=== PATIENT | female | born 1975 | race Caucasian/White ===

== ENCOUNTER 2018-12-21 13:36 | Emergency (ER) | payer OTHER ==
[2018-12-21] MEDS: IBUPROFEN 200 MG TAB PO (17:01)
[2018-12-21] MEDS: ACETAMINOPHEN 325 MG TAB PO (17:01)
== END 2018-12-21 17:43 | disposition home or self-care (01) ==
LOC: FTE 13:36
DX: M54.2 Cervicalgia (principal)
CPT/HCPCS: 72040; 99283-25